=== PATIENT | female | born 2005 | race African-American/Black ===

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

== ENCOUNTER 2023-10-28 12:11 | Emergency (ER) | payer OTHER, SELFPAY | END 2023-10-28 13:40 | disposition home or self-care (01) | LOC: ERS 12:11 | DX: Z04.1 Encounter for examination and observation following transport accident (principal); V47.5XXA Car driver injured in collision with fixed or stationary object in traffic accident, initial encounter; W22.10XA Striking against or struck by unspecified automobile airbag, initial encounter; Y92.410 Unspecified street and highway as the place of occurrence of the external cause | CPT/HCPCS: 99283 ==

== ENCOUNTER 2024-10-15 16:39 | Emergency (ER) | payer SELFPAY | END 2024-10-15 17:15 | disposition left against medical advice (07) | LOC: ERS 16:39 | DX: Z53.21 Procedure and treatment not carried out due to patient leaving prior to being seen by health care provider (principal) ==